=== PATIENT | female | born 1960 | race Caucasian/White ===

== ENCOUNTER 2019-08-24 11:24 | Inpatient (IN) | payer OTHER, SELFPAY ==
[2019-08-15 08:49] VITALS: BMI 29.8
[2019-08-24] VITALS (19 sets, daily range): BP systolic 81–127; BP diastolic 43–75; PULSE 64–85; RESP 10–20; TEMP 35.9–36.6; O2SAT 90–100; BMI 29.8
--- NOTE | 2019-08-24 | DI.RAD.S_ITS ---
PROCEDURE: XR LUMBAR SPINE 2-3V INDICATIONS: L5-S1 TLIF TECHNIQUE: 2 fluoroscopic images views of the lumbar spine were acquired. COMPARISON: CT, CT LUMBAR SPINE WO CON, 10/11/2015, 21:19. FINDINGS: L5-S1 fixation and intervertebral body spacer. Minimal anterolisthesis. L5 pars defect seen on remote CT. IMPRESSION: L5-S1 fixation and intervertebral body spacer. Dictated by: George Alas M.D. on 08/24/2019 at 16:56 Approved by: George Alas M.D. on 08/24/2019 at 16:58
[2019-08-24] MEDS: LACTATED RINGERS 1,000 ML 42 ML IV ×2 (12:10→15:47)
--- NOTE | 2019-08-24 13:39 | PM.PREOP ---
Pre-operative Note Interval Note History & Physical reviewed/Exam performed by Physician: Yes Changes to H&P: No
[2019-08-24] MEDS: CEFAZOLIN 2 GM/100 ML FROZ.PIGGY IV ×2 (14:30→22:04)
--- NOTE | 2019-08-24 14:54 | SUR.OPER ---
Prone on spine table, head in foam head support, padded chest and pelvic supports, gel pad at knees, lower legs supported by pillows; nipples, genitalia and toes free of pressure, arms secured on foam padded arm boards at <90 degrees abduction. Tape over blanket at thigh secured to table.
[2019-08-24] MEDS: BUPIVACAINE 0.25% W/ EPI 30 ML VIAL INJ (15:04)
[2019-08-24] MEDS: BUPIVACAINE LIPOSOME 266 MG/20 ML VIAL INJ (15:04)
[2019-08-24] MEDS: ACETAMINOPHEN IV 1,000 MG/100 ML VIAL 400 MG IV (15:05)
--- NOTE | 2019-08-24 16:44 | PM.OP.1 ---
Operative Date/Time/Diagnoses Date of procedure: 08/24/19 Time of procedure: 14:44 Pre-op diagnosis: 1. L5-S1 spondylolisthesis 2. L4-5, L5-S1 spinal stenosis 3. L4-5, L5-S1 spondylosis with radiculopathy Post-op diagnosis: same Procedure & Clinicians Procedure: 1. L5-S1 Postero-lateral and posterior interbody fusion 2. L5-S1 interbody cage placement. 3. L5-S1 decompressive laminectomy with bilateral facetecomies 4. L5-S1 Posterior non-segmental instrumentation 5. L4-5 hemilaminectomy 6. [place] of bone marrow from iliac crest 7. Utilization of microsurgical technique and operating microscope Same procedure as scheduled: Yes Indications: Patient has been having chronic back pain and worsening lumbar radiculopathy. Patient failed multiple conservative management with worsening pain weakness and numbness in her lower extremity. Patient has been having difficulty performing activity of daily living. After discussing risks benefits of treatment options, patient elected proceed with surgery. Surgeon: Isaias Corbin Field Representative/Health Education: Alena Mckoy Click Yes if Unassisted: No Anesthesia Type: General Operative Notes Closure Type: primary Specimen(s): none sent Prosthetic devices, grafts, tissues, transplants, or devices: Globus revolve screws, Rise cage Estimated Blood Loss (mL): 50 Blood products transfused: none Procedure in detail: Patient was seen in the preoperative area. Risks and benefits of the surgery was discussed with the patient. Informed consent was obtained from the patient and placed in the chart. Surgical site was marked. Patient was taken to the operative room. General anesthesia was administered. Prophylactic antibiotic was given to the patient less than 30 min before the incision was made. Patient was placed into a prone position on the Red table. Patient's back was then prepped and draped in the sterile fashion. Time-out was performed at this time. Using AP and lateral C-arm imaging the interval between L4-5 L5-S1 was identified and marked on patient's back. A 2 inch incision 2 in from midline was made on the left side first. The fascia was incised in line with skin incision. Globus MARS retractors was placed inside the incision and docked onto the L5 lamina. Using microsurgical technique and operating microscope, a L5 laminectomy and L5-S1 facetectomy was performed using a [place]ison rongeur. Patient was found have severe central and neural foramen stenosis which was fully decompressed after the laminectomy and facetectomy was completed. The disc space at L5-S1 was identified. And a total diskectomy was performed at L5-S1 level. The endplates were decorticated using a rasp and shaver. The total diskectomy and decortication was performed at L5-S1 level in order to to accomplish a L5-S1 fusion. The local bone from the laminectomy and facetectomy was saved for local bone grafting. After the total diskectomy and decortication was completed, Bio4 bone graft material was combined with local bone that was harvested earlier. At this time, a separate skin is incision was made over the iliac crest. A Jamshidi needle was inserted into the iliac crest through a separate skin incision. 5 cc of bone marrow aspiration was obtained through the separate skin incision using a Jamshidi needle from the iliac crest. The bone marrow aspiration was combined with local bone and the Bio4 bone grafting material. The bone grafting material was placed into the L5-S1 interbody space along with a expandable cage. The cage was expanded to its maximum height using the torque limiting screwdriver. At this time the MARS retractor was redirected over the L4 lamina. Using microsurgical technique and operating microscope, a L4-5 heminectomy was performed using the [place] rongeur. The ligamentum flavum was also resected at the side of the hemilaminectomy for further decompression of the epidural space. At this time a mirror image incision was made on the right side. The fascia was incised in line with the skin incision. Globus MARS retractor was inserted and docked onto the L5-S1 posterolateral gutter. Using the power drill, posterior-lateral decortication was performed at L5-S1 level until bleeding cortical bone was identified. The remaining bone grafting material was placed into the L5-S1 posterior lateral gutter he order to accomplish posterolateral fusion at the L5-S1 level. Using the double C-arm technique, pedicle screws were placed into the L5 and S1 pedicles bilaterally. This was done by placing the Jamshidi needle into the pedicles, then placing the guidewires over the Jamshidi needle, and finally placing the cannulated screws over the guidewires bilaterally. After the pedicle screws were placed, 2 titanium rods was locked into the heads of the pedicle screws using locking caps and torque limiting screwdriver. Threaded head girls golf coach was used to reduce patient's spondylolisthesis which was fully reduced and stabilized. After all the hardware was placed, and confirmed with AP and lateral C-arm imaging, the wound was then irrigated with sterile normal saline and packed with Ray-Javi gauze for 3 min to accomplish hemostasis. After the gauze was removed the deep fascia was closed with #1 Vicryl suture. The subcutaneous layer was closed with 2-0 Vicryl. The skin was closed with skin delio. Patient tolerated the procedure well. There were no complications. Complications: none Post-operative Condition: stable Disposition: PACU Plan for aftercare: Admit to inpatient hospital
[2019-08-24] MEDS: HYDROMORPHONE 2 MG INJ IV ×8 (17:12→18:05)
[2019-08-24] MEDS: LORazepam 2 MG/ML INJ 0.5 MG IV (17:31)
[2019-08-24] MEDS: CELECOXIB 200 MG CAPSULE PO (17:49)
[2019-08-24] MEDS: OXYCODONE IR 5 MG TABLET PO (17:56)
--- NOTE | 2019-08-24 18:13 | SUR.PHASEI ---
Patient arrived in PACU with oral airway in. When patient woke up she c/o 10/10 pain requiring multiple IV pain med boluses. Gave po pain medication and Lyrica also. Radha CDI. Patient REYNOLD's x 4.
[2019-08-24] MEDS: SODIUM CHLORIDE 0.9% 1,000 ML 100 ML IV (19:56)
[2019-08-24] MEDS: OXYCODONE IR 5 MG TABLET 10 MG PO ×2 (19:57→23:06)
[2019-08-24] MEDS: SENNOSIDES 8.6 MG TABLET 17.2 MG PO (19:58)
[2019-08-24] MEDS: DOCUSATE 100 MG CAPSULE PO (19:58)
--- NOTE | 2019-08-24 20:54 | PC.NURSE ---
Arrival to Floor Patient arrives from PACU alert and oriented but restful. Surgical dressing intact, with some drainage noted to dressing body as well as steri-strips outside of dressing. Mild bruising noted to left thigh. Patient on 2L O2 per titration orders. Family at bedside, care is ongoing.
[2019-08-24] MEDS: HYDROMORPHONE 0.5 MG INJ IV ×2 (21:39→23:44)
[2019-08-25 00:10] VITALS: BP 114/58; PULSE 75; RESP 18; TEMP 36.8; O2SAT 97
[2019-08-25] MEDS: OXYCODONE IR 5 MG TABLET 10 MG PO (02:00)
[2019-08-25 03:30] VITALS: BP 117/66; PULSE 60; RESP 17; TEMP 36.7; O2SAT 99
[2019-08-25] MEDS: HYDROMORPHONE 0.5 MG INJ IV (04:27)
--- NOTE | 2019-08-25 04:28 | PC.NURSE ---
Patient's pain is not being completely managed on PO pain meds alone, having to use break through IV meds despite regular PO dosing. Will pass on to day shift.
[2019-08-25] MEDS: CEFAZOLIN 2 GM/100 ML FROZ.PIGGY IV (06:08)
--- NOTE | 2019-08-25 07:34 | PM.PN.1 ---
Subjective Subjective Date Patient Seen: 08/25/19 Time Patient Seen: 07:35 Interval history: Patient is POD#1 s/p L4-5 hemilaminectomy, L5-S1 TLIF with Dr. Corbin. Pain was moderate to severe overnight requiring Oxycodone 10mg as well as regular IV Dilaudid. Pain is in the hips and right anterior thigh. She has not mobilized with PT as of yet. She denies any chest pain, shortness of breath, nausea or vomiting. Exam Vital Signs (past 8 hours): - 08/25/19 00:10 08/25/19 03:30 Temperature 98.2 F 98.0 F Pulse Rate 75 60 Respiratory Rate 18 17 Blood Pressure 114/58 L 117/66 Pulse Oximetry 97 99 Oxygen Delivery Method Room Air Oxygen Flow Rate 2 Narrative Exam Narrative: 59 year old female resting in bed in some discomfort. Alert and oriented. Dressing is CDI. 5/5 BLE. Calves soft, compressible. Palpable pedal pulse. Objective Labs Result Diagrams: 08/25/19 08:41 Assessment & Plan Assessment & Plan narrative: Patient progressing as expected postoperatively. Will add Dilaudid 2mg for moderate and 4mg for severe pain, encouraged patient to start with 2mg. Will consider Decadron if worsening of anterior thigh pain. Mobilize with PT today. Likely discharge to home in the next 1-2 days.
[2019-08-25 07:44] VITALS: O2SAT 99
[2019-08-25 08:00] VITALS: BP 103/63; PULSE 65; RESP 16; TEMP 36.4; O2SAT 98
[2019-08-25] MEDS: HYDROMORPHONE 4 MG TABLET PO ×5 (08:05→21:49)
[2019-08-25] MEDS: DOCUSATE 100 MG CAPSULE PO ×2 (08:05→21:58)
[2019-08-25] MEDS: ACETAMINOPHEN 325 MG TABLET 650 MG PO ×2 (08:05→14:53)
[2019-08-25] MEDS: INFLUENZA VACCINE 0.5 ML SYRINGE IM (08:06)
[2019-08-25 08:45] LABS: Hematocrit 35.3 % (36-46)
--- NOTE | 2019-08-25 09:33 | PC.NURSE ---
Addendum entered by Priyanka Hough R.N. 08/25/19 13:36: Patient is working with physical therapy now. Given 4mg of po dilaudid and vistaril and patients pain down to 2/10, nausea did resolve. Will medicate her when dilaudid is do again. Original Note: Assess- Patient is A&Ox3, she states that her pain level is 6/10. Given 4mg of po dilaudid and somewhat helpful. Patient is walking in the halls at this time and will most likely sit up in the chair for a while. Back dressing bulky with a small amount of drainage x2. CMS wnl and pt denies numbness or tingling to bilateral lower extremities.
--- NOTE | 2019-08-25 10:18 | OT.IP.EVAL ---
Current Diagnoses Spondylolisthesis, lumbar region (08/24/19) Other spondylosis with radiculopathy, lumbosacral region (08/24/19) Spinal stenosis, lumbar region with neurogenic claudication (08/24/19) Surgery Performed Operation Date: 08/24/19 13:45 Actual Procedures p L4-5 hemilaminectomy, L5-S1 TLIf w/ posterior instrumentation - Isaias Corbin MD Past Medical History (Last Updated 08/15/19 @ 09:14 by Jana Givens RN) Arthritis (Acute) Back pain (Acute) Breast cancer, left (Acute ~2011) Elevated cholesterol (Acute) HTN (hypertension) (Acute) Sciatica (Acute) Surgical History (Last Updated 08/15/19 @ 09:14 by Jana Givens RN) History of lumpectomy of left breast (Acute ~2011) Hx of cholecystectomy (Acute) Hx of LASIK (Acute) Hx of partial mastectomy (Acute ~2011) Hx of tubal ligation (Acute) Occupational Therapy Inpatient Evaluation/Re-Eval M1 PT/OT-IP Prior Functional Status Start: 08/25/19 08:30 Freq: NEEDED Status: Active Protocol: Document 08/25/19 10:27 AW (Rec: 08/25/19 10:54 AW [id number]) Medical Review Prior Functional Status Medical History Reviewed Yes Diet/Fluid Consistency Regular Communication WNL Mobility and Gait Pt has been using a SPC ~20% of the time for mobility. She is otherwise independent but limited to parking lot distances. Activities of Daily Living and IADL's Pt's occasionally helps her don pants, shoes, and socks. She reports independence with showering and toileting. 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 She reports one non-injurious fall on the playground (uneven surface) in the past year. Social History Household Members spouse,family Living Arrangements House Number of Floors (Floors) One Floor Number of Stairs To Enter/Railing? Ramped entry Home Environment Standard Height Toilet,Tub/ Shower,Ramp Home Equipment Four Wheel Walker,Straight Cane,Manual Wheelchair Employment Status Self-Employed Additional Social History Comment Pt lives with her spouse and her mother. Her mom does not have any caregiving needs. Her spouse will be off work this Thursday to assist her at home and over the weekend. Pt's sister is arriving next week to stay and help through the month of August. M2 OT-IP Current Condition Start: 08/25/19 16:24 Freq: Status: Active Protocol: Document 08/25/19 10:18 PJM (Rec: 08/25/19 16:43 PJ [id number]) Occupational Therapy Current Condition Current Condition Evaluation Date 08/25/19 Treatment Diagnosis decreased self care, mobility s/p L5-S1 lami w/PLIF Post Operative Precautions Lumbar Precautions Log Roll,No Twisting,Limit Bending,Lifting Restriction of 10 lbs,Gait Belt above Incisional Area M3 OT- IP Subjective and Pain Start: 08/25/19 16:24 Freq: Status: Active Protocol: Document 08/25/19 10:18 PJM (Rec: 08/25/19 16:43 PJ [id number]) OT- Subjective Occupational Therapy Visit Type Type Initial Evaluation Visit Start Time 09:43 Visit Stop Time 10:18 Total Visit Minutes 35 Occupational Therapy Visit Comments Patient Comments My pain is not too good right now and I am feeling a little nauseous Patient/Caregiver 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 and 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 OT Pain Assessment Pain When Pain Assessed After Treatment Pain Present Pain Present Pain Reported Location Back Intensity 6 Scale Used Numeric (1 - 10) Description Aching,Acute Pain Behaviors Facial Grimacing Management Techniques Distraction,Timing of Activity with Medications M4 OT- IP ADL's Start: 08/25/19 16:24 Freq: Status: Active Protocol: Document 08/25/19 10:18 PJM (Rec: 08/25/19 16:43 PJ [id number]) OT EDF-Jrcx-Craclmr General Evaluation Self-Feeding Ability Independent OT ADL-Grooming General Evaluation Grooming Ability Standby Assistance Comments OT Grooming Comments face washing in bed after set up, pt declines out of bed this session as just got back to bed after P.T. OT ADL-Oral Care Comments Oral Care Comments did not occur OT ADL-Dressing General Eval Lower Body Dressing Ability Maximum Assistance Assistive Devices Dressing Assistive Devices Floor Representative Comments OT Dressing Comments Began education re: adapted techniques for lower body dressing within lumbar precautions. Provided oracle specialist. Pt declines sock aid and long shoe horn as she rarely wears socks and has slip on shoes. OT ADL-Toileting General Evaluation Areas Needing Assistance Perform Perineal Hygiene Devices Toileting Assistive Devices Toilet Paper Aid Comments OT Toileting Comments Pt concerned about ability to complete telma care without twisting. Provided education re: toilet paper aids and on line resources for obtaining them. Pt plans to order one on line today. OT ADL-Bathing Bathing Type Bathing Type Shower Devices Bathing Equipment Long Handled Sponge or [place], Shower Chair without Arms Comments OT Bathing Comments to be assessed as activity tolerance improves, long bath sponge provided; recommend shower seat M5 OT- IP IADL's Start: 08/25/19 16:24 Freq: Status: Active Protocol: Document 08/25/19 10:18 PJM (Rec: 08/25/19 16:43 PJM [id number]) OT-Instrumental Activities of Daily Living Deficits IADL Deficits Identified Deficits Home Safety Awareness Awareness of Need for Assistance at Home Good Awareness Ability to Problem Solve Emergency Able to Problem Solve Situations Home Safety Comments Pt will have assist with all IADLS from sister and . Medication Management Medication Management No Deficits Identified Money Management Money Management No Deficits Identified Meal Preparation Meal Preparation Caregiver Provides Assist Establishment Guide Establishment Guide Caregiver Provides Assist Driving Driving Concerns Identified Regarding Safety M6 OT- IP Functional Cognition Start: 08/25/19 16:24 Freq: Status: Active Protocol: Document 08/25/19 10:18 PJM (Rec: 08/25/19 16:43 PJM [id number]) Cognitive Factors Limiting Selfcare Function Cognitive Ability Level of Alertness Alert Patient Orientation Name,Age,Birthday,Month,Date, Year,Day of Week,Place, Situation Attention Span Ability Capable of Focused Attention, Capable of Sustained Attention Ability to Follow Commands Able to Follow One Step Commands Memory Description No Deficits Noted Safety Awareness No Deficits Noted Problem Solving Ability No deficits Noted Cognitive Comments Cognitive Assessment Comments Pt verbalizes understanding of all education. OT- Vision and Hearing OT- Hearing Assessment OT- Hearing Assessment WFL OT- Vision Assessment Visual Acuity WFL M7 OT- IP Mobility and Balance Start: 08/25/19 16:24 Freq: Status: Active Protocol: Document 08/25/19 10:18 PJM (Rec: 08/25/19 16:43 PJM [id number]) OT-Transfer Assessment Comments Mobility Comments see P.T. notes, pt declined OOB this session OT- Gait Assessment Comments Gait Ability Comments see P.T. notes OT- Balance Assessment Comments Other Balance Tests/Deviations/Treatment see P.T. notes : M8 OT- IP Objective Assessments Start: 08/25/19 16:24 Freq: Status: Active Protocol: Document 08/25/19 10:18 PJM (Rec: 08/25/19 16:43 PJM [id number]) OT Gross Range of Motion Upper Extremity Range of Motion Assessment Within Functional Limits OT Strength Upper Extremity Strength Assessment Within Functional Limits OT- Coordination Assessment Upper Extremity Finger to Nose Test Right UE Impaired OT-Muscle Tone Assessment Muscle Tone WNL Yes OT Sensation Assessment Comments Summary Comments BUE WNL per pt Edema Edema Absent M9 OT- IP Assessment and Plan Start: 08/25/19 16:24 Freq: Status: Active Protocol: Document 08/25/19 10:18 PJM (Rec: 08/25/19 16:43 PJM [id number]) OT Summary Assessment and Plan Potential Rehabilitation Potential Good Analytic Complexity at Evaluation Low Summary OT Impairments Pain,Functional Mobility, Grooming,Dressing,Toileting, Bathing,Toilet Transfers, Shower Transfers,Activity Tolerance Assessment Summary Low complexity OT assessment begun with pt declining OOB this session due to pain, nausea and fatigue. Pt is a 59 yr old female s/p elective L5 -S1 lami with PLIF. Began education re: lumbar precautions and adapted ADL techniques as described above. Pt currently has performance deficits due to post op pain in all functional mobility/ transfers, standing grooming, lower body dressing, bathing, toileting. Anticipate pt will continue to improve here and be able to d/c home with 24 hr family assist. Pt will benefit from one more OT visit here to address the goals below. Goals Grooming Goal Standby Assistance Dressing Goal Standby Assistance,Floor Representative Toileting Goal Standby Assistance,Toilet Paper Aid Bathing Goal Standby Assistance,Hand Held Shower Sprayer,Long Handled Sponge or [place] Toilet Transfer Goal Standby Assistance Shower Transfer Goal Contact Guard Assistance,Walk- in Shower,Shower Chair Patient/Caregiver Education Goal Demonstrate Post-Op Precautions,Demonstrate Energy Conservation and Pacing, Caregiver Independent Assisting Patient OT-Other Goals Grooming to be done standing at sink with good body mechanics and safety awareness Days to Meet Goals 1 Frequency of Treatment Frequency Of Treatment Once a Day Treatment Plan OT Treatment Plan ADL Training,Functional Mobility,Patient/Family Education,Discharge Planning Discharge Recommendations OT Discharge Recommendations Home with 19/01 Assist Home Equipment Needs shower seat Transportation Needs at Discharge Private Vehicle
[2019-08-25] MEDS: hydrOXYzine pamoate 25 MG CAPSULE PO (10:38)
--- NOTE | 2019-08-25 10:54 | PT.IIE ---
Current Diagnoses Spondylolisthesis, lumbar region (08/24/19) Other spondylosis with radiculopathy, lumbosacral region (08/24/19) Spinal stenosis, lumbar region with neurogenic claudication (08/24/19) Surgery Performed Operation Date: 08/24/19 13:45 Actual Procedures p L4-5 hemilaminectomy, L5-S1 TLIf w/ posterior instrumentation - Isaias Corbin MD Surgical History (Last Updated 08/15/19 @ 09:14 by Jana Givens RN) History of lumpectomy of left breast (Acute ~2011) Hx of cholecystectomy (Acute) Hx of LASIK (Acute) Hx of partial mastectomy (Acute ~2011) Hx of tubal ligation (Acute) Medical History (Last Updated 08/15/19 @ 09:14 by Jana Givens RN) Arthritis (Acute) Back pain (Acute) Breast cancer, left (Acute ~2011) Elevated cholesterol (Acute) HTN (hypertension) (Acute) Sciatica (Acute) Physical Therapy Inpatient Evaluation/Re-Eval M1 PT/OT-IP Prior Functional Status Start: 08/25/19 08:30 Freq: NEEDED Status: Active Protocol: Document 08/25/19 10:27 AW (Rec: 08/25/19 10:54 AW [id number]) Medical Review Prior Functional Status Medical History Reviewed Yes Diet/Fluid Consistency Regular Communication WNL Mobility and Gait Pt has been using a SPC ~20% of the time for mobility. She is otherwise independent but limited to parking lot distances. Activities of Daily Living and IADL's Pt's occasionally helps her don pants, shoes, and socks. She reports independence with showering and toileting. 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 She reports one non-injurious fall on the playground (uneven surface) in the past year. Social History Household Members spouse,family Living Arrangements House Number of Floors (Floors) One Floor Number of Stairs To Enter/Railing? Ramped entry Home Environment Standard Height Toilet,Tub/ Shower,Ramp Home Equipment Four Wheel Walker,Straight Cane,Manual Wheelchair Employment Status Self-Employed Additional Social History Comment Pt lives with her spouse and her mother. Her mom does not have any caregiving needs. Her spouse will be off work this Thursday to assist her at home and over the weekend. Pt's sister is arriving next week to stay and help through the month of August. M2 PT-IP Current Condition Start: 08/25/19 08:30 Freq: NEEDED Status: Active Protocol: Document 08/25/19 10:27 AW (Rec: 08/25/19 10:54 AW [id number]) Physical Therapy Current Condition Current Condition Evaluation Date 08/25/19 Treatment Diagnosis L4-5 marii lami, L5-S1 TLIF, impaired mobility Onset Date 08/24/19 Precautions Lumbar Precautions Log Roll,No Twisting,Limit Bending,Lifting Restriction of 10 lbs,Gait Belt above Incisional Area Weight Bearing Status Weight Bearing Status Full Weight Bearing M3 PT-IP Subjective Start: 08/25/19 08:30 Freq: NEEDED Status: Active Protocol: Document 08/25/19 10:27 AW (Rec: 08/25/19 10:54 AW [id number]) Subjective Physical Therapy Visit Type Type Initial Evaluation Visit Start Time 09:15 Visit Stop Time 09:50 Total Visit Minutes 35 Number of VIDEO POKER FLOORMAN Visits 0 Physical Therapy Visit Comments Patient Comments Pt interested in using the toilet Patient Goals Pt hopes to discharge to home with family assist Therapy Pain Assessment Pain When Pain Assessed During Mobility Pain Present Pain Present Pain Reported Location right anterior thigh Intensity 6 Scale Used Numeric (1 - 10) Pain Management Techniques Distraction,Timing of Activity with Medications Back Intensity 6 Scale Used 6/10 at rest; unchanged with mobility Pain Management Techniques Distraction,Timing of Activity with Medications M4 PT-IP Mobility and Gait Start: 08/25/19 08:30 Freq: NEEDED Status: Active Protocol: Document 08/25/19 10:27 AW (Rec: 08/25/19 10:54 AW [id number]) PT-Bed Mobility Assessment Rolling Type of Rolling Log Rolling Level of Assist Minimal Assistance Sit to Supine Sit to Supine Minimal Assistance,1 Person Assistance Scooting Scooting to Edge of Bed Minimal Assistance PT-Transfer Assessment Sit to and From Stand Sit to and from Stand Contact Guard Assistance,1 Person Assistance,Use of Upper Extremities Equipment Transfer Assistive Device Gait Belt,4 Wheeled Walker Orthotic/Prosthetic Devices or Brace: No Transfers Transfer Destination Bed,Chair,Toilet Transfer Technique pt ambulated with 4WW Transfer Ability Level of Assist Contact Guard Assistance Comments Mobility Comments Pt encountered sitting EOB upon PT arrival, working with student nurse. Pt's own 4WW was in the room. PT unable to locate pediatric size FWW, so proceeded with pt's 4WW although she was unfamiliar with the device. After brief education on safety with 4WW, pt completed sit to stand using 4WW CGA. She ambulated to the toilet with 4WW CGA and cues to keep the 4WW a safe distance from her trunk, especially in turns. She transferred to and from the toilet CGA then transferred to the chair CGA with student nurse assisting with briefs. Pt then ambulated in the halls before requesting return to bed. Pt required min A x 1 for sit to supine and log roll. She was positioned in the bed with bed alarm armed for safety, call light and table within reach. OT arrived as PT was exiting. Gait Assessment Gait Gait Assistance Required: Contact Guard Assist Distance (Feet) 60 Able to Maintain Weight Bearing Status Yes During Gait Assistive Devices Assistive Device Gait Belt,4 Wheeled Walker Orthotic/Prosthetic Devices or Brace: No Gait Deviations General Gait Pattern Antalgic,Decreased Stride Length,Decreased Feet Clearance,Step-to Gait Factors Limiting Gait Function Factors Limiting Gait Function Decreased Activity Tolerance, Decreased Strength,Pain,Poor Safety Awareness Comments Gait Comments Pt required education on use of 4WW for setting the brakes appropriately and for keeping the walker closer to her body especially during turns. She expressed interest in trying a FWW at PM session. She moved slowly but with good safety awareness with 4WW CGA in the halls without marked increase in pain. Stair Climbing Assessment Comments Stair Climbing Comments Not assessed. No stairs at home. PT-Balance Assessment Sitting Balance and Reactions Static Sitting Balance Ability Good Dynamic Sitting Balance Ability Good Standing Balance and Reactions Static Standing Balance Ability Good Dynamic Standing Balance Ability Good Device Used 4WW M5 PT-IP Objective Assessments Start: 08/25/19 08:30 Freq: NEEDED Status: Active Protocol: Document 08/25/19 10:27 AW (Rec: 08/25/19 10:54 AW [id number]) Orientation Orientation/Cognition Level of Alertness Alert Orientation Name,Month,Place,Situation Language Function Ability No Deficits Noted Safety Awareness Understands Safety Issues Memory Description No Deficits Noted Gross Range of Motion Lower Extremity ROM Assessment Within Functional Limits Strength Lower Extremity Strength Assessment Bilaterally Impaired Comments Strength Comments BLE grossly 4/5 Coordination Assessment Gross Coordination Gross Coordination WNL Sensation Assessment Sensation Gross Sensation WNL M6 PT-IP Treatment Start: 08/25/19 08:30 Freq: NEEDED Status: Active Protocol: Document 08/25/19 10:27 AW (Rec: 08/25/19 10:54 AW [id number]) Physical Therapy Treatment Education Education Provided Precautions,Weight Bearing Status,Post-Op Packet,Safety Other Treatments Other Treatment Performed Provided education on role of PT, plan of care, spinal precautions, and selection of appropriate assistive device. Pt was able to recall all spinal precautions. M7 PT-IP Assessment and Plan Start: 08/25/19 08:30 Freq: NEEDED Status: Active Protocol: Document 08/25/19 10:27 AW (Rec: 08/25/19 10:54 AW [id number]) PT Summary Assessment and Plan Potential Rehabilitation Potential Excellent Status of Condition at Evaluation Stable Summary Impairments Pain,ROM,Strength,Bed Mobility ,Transfers,Gait,Activity Tolerance Assessment Summary Preeti is a 59 yo woman seen for PT evaluation on POD1 following L4-5 marii lami and L5-S1 TLIF. At baseline, she was modified independent with all mobility, using a SPC ~20% of the time. She required occasional assist for lower body dressing. On evaluation, she required CGA to min assist for all mobility but is expected to progress and meet the functional goals of this plan of care. She used her own 4WW for mobility today but would prefer to try a FWW at PM session. She is currently limited in her mobility primarily by pain but will be safe to discharge to her home environment with family assist when medically cleared. Goals Bed Mobility Goal Standby Assistance Transfer Goal Standby Assistance,Front Wheeled Walker,Four Wheeled Walker Gait Goal Standby Assistance,Front Wheel Walker,Four Wheel Walker Gait Distance 250 Days to Meet Goals 2 Frequency of Treatment Frequency Of Treatment Twice a Day Treatment Plan Physical Therapy Treatment Plan Bed Mobility Training,Transfer Training,Gait Training, Therapeutic Exercise,Balance Retraining,Post Op Education, Discharge Planning,Hot or Cold Pack,Neuromuscular Re-ed, Coordination Retraining,Manual Therapy Other Recommendations and Next Treatment trial pediatric FWW (pt 4'9); Focus Recommendations To Nursing Amount of Assist Needed Standby Assistance,1 Person Assist Discharge Recommendations PT Discharge Recommendations Home with Assistance Equipment Needed for Home Before may need FWW; tub transfer Discharge bench Transportation Needs at Discharge Private Vehicle
[2019-08-25 12:00] VITALS: BP 119/72; PULSE 69; RESP 16; TEMP 36.6; O2SAT 98
--- NOTE | 2019-08-25 14:35 | PT.IPTN ---
Current Diagnoses Spondylolisthesis, lumbar region (08/24/19) Other spondylosis with radiculopathy, lumbosacral region (08/24/19) Spinal stenosis, lumbar region with neurogenic claudication (08/24/19) Surgery Performed Operation Date: 08/24/19 13:45 Actual Procedures p L4-5 hemilaminectomy, L5-S1 TLIf w/ posterior instrumentation - Isaias Corbin MD Physical Therapy Treatment Note M2 PT-IP Current Condition Start: 08/25/19 08:30 Freq: NEEDED Status: Active Protocol: Document 08/25/19 10:27 AW (Rec: 08/25/19 10:54 AW [id number]) Physical Therapy Current Condition Current Condition Evaluation Date 08/25/19 Treatment Diagnosis L4-5 marii lami, L5-S1 TLIF, impaired mobility Onset Date 08/24/19 Precautions Lumbar Precautions Log Roll,No Twisting,Limit Bending,Lifting Restriction of 10 lbs,Gait Belt above Incisional Area Weight Bearing Status Weight Bearing Status Full Weight Bearing M3 PT-IP Subjective Start: 08/25/19 08:30 Freq: NEEDED Status: Active Protocol: Document 08/25/19 14:20 AW (Rec: 08/25/19 14:35 AW [id number]) Subjective Physical Therapy Visit Type Type Treatment Note Visit Start Time 13:27 Visit Stop Time 13:47 Total Visit Minutes 20 Physical Therapy Visit Comments Patient Comments Pt has been nauseous and trying to rest but is willing to participate with PT Therapy Pain Assessment Pain When Pain Assessed During Mobility Pain Present Pain Present Pain Reported Location right anterior thigh Intensity 5 Scale Used 5/10 at rest; unchanged with mobility Pain Management Techniques Distraction,Timing of Activity with Medications M4 PT-IP Mobility and Gait Start: 08/25/19 08:30 Freq: NEEDED Status: Active Protocol: Document 08/25/19 14:20 AW (Rec: 08/25/19 14:35 AW [id number]) PT-Bed Mobility Assessment Rolling Type of Rolling Log Rolling Level of Assist Contact Guard Assistance Sit to Supine Sit to Supine Minimal Assistance,1 Person Assistance Scooting Scooting to Edge of Bed Standby Assistance PT-Transfer Assessment Sit to and From Stand Sit to and from Stand Standby Assistance,1 Person Assistance,Use of Upper Extremities Equipment Transfer Assistive Device Gait Belt,4 Wheeled Walker Orthotic/Prosthetic Devices or Brace: No Transfers Transfer Destination Chair Transfer Technique pt ambulated with 4WW Transfer Ability Level of Assist Standby Assistance Comments Mobility Comments Pt resting in bed upon PT arrival. She completed log roll to her right side CGA and cues for sequencing, sit to stand using 4WW SBA. Pt was wincing with pain but reported no increase from pain level at rest. After gait training in the mercedes, pt returned to the room and transferred to the chair SBA without need for cues to lock the 4WW. She was able to scoot her hips back in the chair. PT positioned her with pillows, call light and table within reach, nursing notified that pt was reclined in the chair. Gait Assessment Gait Gait Assistance Required: Standby Assistance Distance (Feet) 90 Able to Maintain Weight Bearing Status Yes During Gait Assistive Devices Assistive Device Gait Belt,4 Wheeled Walker Orthotic/Prosthetic Devices or Brace: No Gait Deviations General Gait Pattern Antalgic,Decreased Stride Length,Decreased Feet Clearance,Step-to Gait Factors Limiting Gait Function Factors Limiting Gait Function Decreased Activity Tolerance, Decreased Strength,Pain,Poor Safety Awareness Comments Gait Comments Unable to locate a pediatric- sized walker, PT proceeded with pt's own 4WW. Pt demonstrated good safety with the 4WW, setting the brakes appropriately without need for cues. PT instructed patient in using the seat of the walker by pushing it against a wall first, setting the brakes, and then turning around with hands on the handles. Pt was able to complete sit<>stand on the 4WW safely without additional cues. She has good posture and safety awareness with the FWW but still may be interested in procuring a FWW at discharge for ease of use. Stair Climbing Assessment Comments Stair Climbing Comments Not assessed. No stairs at home. M5 PT-IP Objective Assessments Start: 08/25/19 08:30 Freq: NEEDED Status: Active Protocol: Document 08/25/19 10:27 AW (Rec: 08/25/19 10:54 AW [id number]) Orientation Orientation/Cognition Level of Alertness Alert Orientation Name,Month,Place,Situation Language Function Ability No Deficits Noted Safety Awareness Understands Safety Issues Memory Description No Deficits Noted Gross Range of Motion Lower Extremity ROM Assessment Within Functional Limits Strength Lower Extremity Strength Assessment Bilaterally Impaired Comments Strength Comments BLE grossly 4/5 Coordination Assessment Gross Coordination Gross Coordination WNL Sensation Assessment Sensation Gross Sensation WNL M6 PT-IP Treatment Start: 08/25/19 08:30 Freq: NEEDED Status: Active Protocol: Document 08/25/19 14:20 AW (Rec: 08/25/19 14:35 AW [id number]) Physical Therapy Treatment Education Education Provided Precautions,Safety Other Treatments Other Treatment Performed Continued to reinforce precautions which pt was able to recall without prompts. M7 PT-IP Assessment and Plan Start: 08/25/19 08:30 Freq: NEEDED Status: Active Protocol: Document 08/25/19 14:20 AW (Rec: 08/25/19 14:35 AW [id number]) PT Summary Assessment and Plan Summary Impairments Pain,ROM,Strength,Bed Mobility ,Transfers,Gait,Activity Tolerance Progress Towards Goals Progressing Toward Goals Goals Bed Mobility Goal Standby Assistance Transfer Goal Standby Assistance,Front Wheeled Walker,Four Wheeled Walker Gait Goal Standby Assistance,Front Wheel Walker,Four Wheel Walker Gait Distance 250 Days to Meet Goals 2 Frequency of Treatment Frequency Of Treatment Twice a Day Treatment Plan Physical Therapy Treatment Plan Bed Mobility Training,Transfer Training,Gait Training, Therapeutic Exercise,Balance Retraining,Post Op Education, Discharge Planning,Hot or Cold Pack,Neuromuscular Re-ed, Coordination Retraining,Manual Therapy Other Recommendations and Next Treatment trial pediatric FWW (pt 4'9); Focus progress gait distance Recommendations To Nursing Amount of Assist Needed Standby Assistance Discharge Recommendations PT Discharge Recommendations Home with Assistance Equipment Needed for Home Before may need FWW; tub transfer Discharge bench Transportation Needs at Discharge Private Vehicle
[2019-08-25 15:51] VITALS: BP 108/60; PULSE 74; RESP 16; TEMP 36.3; O2SAT 96
--- NOTE | 2019-08-25 16:18 | PC.NURSE ---
Addendum entered by Dione Serra 08/25/19 18:58: Patient medicated for 4/10 lower back pain at 1836 to good effect. Patient resting comfortably. Original Note: Assumed care of patient. Safe hand off received from STAR Mathew. Patient is a/o with daughter at bedside. Patient up to bathroom with four-wheeled walker, 1 PA. Patient back in bed, with tolerable pain 3/10. IV SL and asymptomatic. Dressing to lower back, CDI. Foot SCDs reapplied. Bed in lowest position and call light in reach. Patient agrees to call staff before getting OOB. Will continue to monitor.
[2019-08-25] MEDS: SENNOSIDES 8.6 MG TABLET 17.2 MG PO (21:58)
[2019-08-26] VITALS: BP 108/64; PULSE 64; RESP 18; TEMP 36.6; O2SAT 96
[2019-08-26] MEDS: HYDROMORPHONE 2 MG TABLET PO ×2 (00:35→03:42)
[2019-08-26] MEDS: ONDANSETRON 4 MG/2 ML INJ IV (00:35)
--- NOTE | 2019-08-26 03:44 | PC.NURSE ---
Addendum entered by Kylah Newton R.N. 08/26/19 05:13: Medicated patient at 0345 for 5/10 neck pain. Was alerted by staff at 0500 that patient was reporting 9/10 pain and threatening to call her as she felt her pain wasn't being managed. Medicated patient per MAR with 0.5mg IV Dilaudid for 9/10 pain in neck and back. Patient had been ambulated to the bathroom prior to onset of increased pain. If pain is not managed with IV dilaudid, will notify application security specialist provider. Original Note: Medicating patient for neck pain, 5/10 q3 with 2mg PO Dilaudid. Patient denies back pain.
[2019-08-26 04:05] VITALS: BP 99/67; PULSE 68; RESP 19; TEMP 36.6; O2SAT 98
[2019-08-26] MEDS: HYDROMORPHONE 0.5 MG INJ IV (05:10)
[2019-08-26 08:00] VITALS: BP 137/75; PULSE 77; RESP 16; TEMP 36.3; O2SAT 96
[2019-08-26] MEDS: LOSARTAN 25 MG TABLET 12.5 MG PO (08:01)
[2019-08-26] MEDS: HYDROMORPHONE 4 MG TABLET PO ×6 (08:01→23:57)
[2019-08-26] MEDS: DOCUSATE 100 MG CAPSULE PO ×2 (08:01→20:11)
--- NOTE | 2019-08-26 11:18 | PC.NURSE ---
Addendum entered by Priyanka Hough R.N. 08/26/19 14:33: Patient given a shower an new cover site put on her back. She was just given 4mg of po dilaudid and helpful. Working well with physical therapy. Original Note: 0800- Patient very teary eyed this morning. States that she had a bad night and she did not feel like her pain management was controlled. Explained to patient that we would have her on a every three hour pain regimen of 4mg of po dilaudid and will write on the board when the next pain med is do. She has had 4mg of po dilaudid and again at 1100. Patient is happy with her pain management.This is what we did yesterday on day shift and she states that her pain was manageable. She is moving slow out of bed but is able to get herself up with staff assist. Patient is only 4f 9inches and the bed is too high for her. Dressing to back is bulky with a couple of spots of drainage that is dried. Patient is working with physical therapy now and moving better. She is in better spirits and going to have a shower a bit later.
--- NOTE | 2019-08-26 11:33 | PT.IPTN ---
Current Diagnoses Spondylolisthesis, lumbar region (08/24/19) Other spondylosis with radiculopathy, lumbosacral region (08/24/19) Spinal stenosis, lumbar region with neurogenic claudication (08/24/19) Surgery Performed Operation Date: 08/24/19 13:45 Actual Procedures p L4-5 hemilaminectomy, L5-S1 TLIf w/ posterior instrumentation - Isaias Corbin MD Physical Therapy Treatment Note M2 PT-IP Current Condition Start: 08/25/19 08:30 Freq: NEEDED Status: Active Protocol: Document 08/25/19 10:27 AW (Rec: 08/25/19 10:54 AW [id number]) Physical Therapy Current Condition Current Condition Evaluation Date 08/25/19 Treatment Diagnosis L4-5 marii lami, L5-S1 TLIF, impaired mobility Onset Date 08/24/19 Precautions Lumbar Precautions Log Roll,No Twisting,Limit Bending,Lifting Restriction of 10 lbs,Gait Belt above Incisional Area Weight Bearing Status Weight Bearing Status Full Weight Bearing M3 PT-IP Subjective Start: 08/25/19 08:30 Freq: NEEDED Status: Active Protocol: Document 08/26/19 11:09 KS (Rec: 08/26/19 12:20 KS [id number]) Subjective Physical Therapy Visit Type Type Treatment Note Visit Start Time 11:09 Visit Stop Time 11:33 Total Visit Minutes 24 Number of SEWING LINE BALER Visits 1 Physical Therapy Visit Comments Patient Comments Pt agreeable to work w/ therapy. Therapy Pain Assessment Pain When Pain Assessed After Treatment Pain Present Pain Present Pain Reported Location Back Intensity 4 Scale Used 3/10 at rest Pain Management Techniques Re-positioning M4 PT-IP Mobility and Gait Start: 08/25/19 08:30 Freq: NEEDED Status: Active Protocol: Document 08/26/19 11:09 KS (Rec: 08/26/19 12:20 KS [id number]) PT-Bed Mobility Assessment Rolling Type of Rolling Log Rolling Level of Assist Minimal Assistance Supine to Sit Supine to Sit Minimal Assistance,1 Person Assistance,Head of Bed Elevated,Bedrails Scooting Scooting to Edge of Bed Moderate Assistance PT-Transfer Assessment Sit to and From Stand Sit to and from Stand Contact Guard Assistance,1 Person Assistance,Use of Upper Extremities Equipment Transfer Assistive Device Gait Belt,Front Wheeled Walker Orthotic/Prosthetic Devices or Brace: No Transfers Transfer Destination Chair Transfer Technique Pt ambulated w/ FWW Transfer Ability Level of Assist Contact Guard Assistance, Minimal Assistance,1 Person Assistance Comments Mobility Comments Pt was in bed upon arrival from therapy and able to recall all precautions. Covered LE strengthening exercises to do in bed including ankle pumps, SLR, quad and glute sets. Pt then performed logroll Min A w/o cues. Sidelying to sit Min A min cues for sequencing. Once sitting EOB, pt was able to remain upright on her own for application of gait belt. Mod A for scooting to EOB, once pt was EOB she stood w/ FWW and CGA. She then ambulated CGA to bathroom, performed own pericare, walked to sink to wash hands, cues for bending at hips, and then ambulated in hallway. Upon return to room, pt approached chair to sit w/ proper use of FWW and demonstrated compliance w/ precautions when sittimng. Pt needed Mod A for scooting back in chair. Pt left in chair w/ all needs in reach. Gait Assessment Gait Gait Assistance Required: Standby Assistance,Contact Guard Assist,1 Person Assist Distance (Feet) 100 Able to Maintain Weight Bearing Status Yes During Gait Assistive Devices Assistive Device Gait Belt,Front Wheeled Walker Gait Deviations General Gait Pattern Antalgic,Decreased Stride Length,Decreased Feet Clearance,Step-to Gait Factors Limiting Gait Function Factors Limiting Gait Function Decreased Activity Tolerance, Decreased Strength,Pain,Poor Safety Awareness Comments Gait Comments Pt used FWW today instead of 4WW and stated that she felt safer walking w/ it, but it is harder to maneuver. Pt ambulated ~100 ft, from bed to bathroom then out in hallway and back to chair in room. Pt has slow gait w/ decreased stride length and foot clearance d/t pain and decreased activity tolerance. Pt demonstrated proper use of FWW throughout ambulation and needed min cues when approaching chair w/ FWW to sit. Stair Climbing Assessment Comments Stair Climbing Comments Not assessed. No stairs at home. PT-Balance Assessment Sitting Balance and Reactions Static Sitting Balance Ability Good Dynamic Sitting Balance Ability Good Standing Balance and Reactions Static Standing Balance Ability Good Dynamic Standing Balance Ability Good Device Used FWW M5 PT-IP Objective Assessments Start: 08/25/19 08:30 Freq: NEEDED Status: Active Protocol: Document 08/25/19 10:27 AW (Rec: 08/25/19 10:54 AW [id number]) Orientation Orientation/Cognition Level of Alertness Alert Orientation Name,Month,Place,Situation Language Function Ability No Deficits Noted Safety Awareness Understands Safety Issues Memory Description No Deficits Noted Gross Range of Motion Lower Extremity ROM Assessment Within Functional Limits Strength Lower Extremity Strength Assessment Bilaterally Impaired Comments Strength Comments BLE grossly 4/5 Coordination Assessment Gross Coordination Gross Coordination WNL Sensation Assessment Sensation Gross Sensation WNL M6 PT-IP Treatment Start: 08/25/19 08:30 Freq: NEEDED Status: Active Protocol: Document 08/26/19 11:09 KS (Rec: 08/26/19 12:20 KS [id number]) Physical Therapy Treatment Exercises Exercises Ankle Pumps,Gluteal Sets,Quad Sets,Straight Leg Raises Education Education Provided Precautions,Post-Op Packet, Safety Other Treatments Other Treatment Performed Discussed precautions, LE strengthening exercises, and getting FWW from [facility] for home use. M7 PT-IP Assessment and Plan Start: 08/25/19 08:30 Freq: NEEDED Status: Active Protocol: Document 08/26/19 11:09 KS (Rec: 08/26/19 12:20 KS [id number]) PT Summary Assessment and Plan Summary Impairments Pain,ROM,Strength,Bed Mobility ,Transfers,Gait,Activity Tolerance Progress Towards Goals Progressing Toward Goals Assessment Summary Pt is still requiring assist w / logroll, sidelying to sit, and scooting EOB, but is able to sit<>stand<>sit w/ FWW and CGA. SBA to CGA for ambulation , pt has slow gait w/ decreased stride. Pt states she feels safer using FWW for ambulation even though 4WW is easier to maneuver. Pt stated that someone in her family will be able to get [facility] Goals Bed Mobility Goal Standby Assistance Transfer Goal Standby Assistance,Front Wheeled Walker,Four Wheeled Walker Gait Goal Standby Assistance,Front Wheel Walker,Four Wheel Walker Gait Distance 250 Days to Meet Goals 2 Frequency of Treatment Frequency Of Treatment Twice a Day Treatment Plan Physical Therapy Treatment Plan Bed Mobility Training,Transfer Training,Gait Training, Therapeutic Exercise,Balance Retraining,Post Op Education, Discharge Planning,Hot or Cold Pack,Neuromuscular Re-ed, Coordination Retraining,Manual Therapy Other Recommendations and Next Treatment trial pediatric FWW (pt 4'9); Focus progress gait distance Recommendations To Nursing Amount of Assist Needed 1 Person Assist Discharge Recommendations PT Discharge Recommendations Home with Assistance Equipment Needed for Home Before may need FWW; tub transfer Discharge bench Transportation Needs at Discharge Private Vehicle
--- NOTE | 2019-08-26 11:35 | CM.DANOTE ---
DCP Assessment: EMR reviewed: Patient is a 59 yr old female who was admitted to the hospital for multiple spinal surgeries preformed by Dr BUNCH. Patients PCP is Dr Umana. Cm/Rn met with patient at the bedside and explained role. Patient was alert and orientedx3 during visit. Patient is mostly Independent with ADL's prior to surgery patients did assist patient with dressing. Patient did drive prior to surgery. Nicole ariza lives in a single level home with no stairs to get into the home and has FWW, Cane and a walk in shower. PT recommendation is how with assistance. Patients will be home for a few days from work then patients sister will be staying with her until she is healed. I: Carbaj[employer] and self pay Plan: D/C home with family to assist with care of patient when medically stable. No identified D/C planning needs noted at this time. Cm department will follow to assist with any new D/C planning needs that might arise. Karis Sarkar RN Discharge Planning/Care Management CM Discharge Assessment Start: 08/26/19 11:32 Freq: Status: Active Protocol: Document 08/26/19 11:33 HS (Rec: 08/26/19 11:35 [id number]) Discharge Planning Assessment Assigned Communicable Disease Specialist Karis Sarkar RN DPOA/Assigned Designee Name Seferino cruz (life partner) Contact Information [phone] Advance Directives? No History Provided By Patient Has Patient been admitted in last 30 No days? Prior Living Arrangements House Household Members spouse,family Type of transporation used prior to Drives own vehicle admit Independent with ADL's Yes: Prior to surgery patient did need help with Dressing Is patient alert and oriented? Yes Needs Assistance With Grooming Caregiver for Another No DME Already Rented / Owned FWW / Walker,Cane Barriers to Discharge No Discharge Plan Home Referrals Initiated None needed Whiteboard Updated in Patient Room with Yes name and ext. # of Communicable Disease Specialist Review Status In Process Next Review Type Continued Stay Review Pre-Anesthesia Assessment Start: 08/15/19 08:49 Freq: Status: Active Protocol: Document 08/15/19 08:49 CAB (Rec: 08/15/19 09:33 CAB [id number]) Pre-Anesthesia Assessment Patient Information Reviewed Via Phone Assessment Assessment Completed With Patient Comment Labs/EKG done per pt, Surgeon has everything - not in system @ present Primary Care Provider Nupur Umana Seen Specialist in Last 12 Months Yes Specialist Seen Oncologist,Orthopedist Primary Language Lithuanian [employer]rop Harvest Contractor Required No Height 144.78 cm Weight 62.596 kg Body Mass Index (BMI) 29.8 Hearing Ability Normal Visual Impairment No Limitations Visual Assist None Dentition Type Teeth, Natural Present,Teeth, Missing Barriers to Learning None Hx Anesthesia Reactions No Hx Family Anesthesia Reaction No Hx Malignant Hyperthermia No Hx Blood Transfusions No Anesthesia Review Requested No alcohol intake current alcohol intake frequency a few times a week Smoking Status Former smoker Tobacco type cigarettes how long ago did patient quit smoking Quit 2 months ago Substance Use Type does not use Pain Present Pain Reported Musculoskeletal Symptoms Abnormal Gait,Back Pain, Difficulty Walking,Muscle Spasms,Numbness,Radiating Pain into Limb,Tingling History of Falling (Recent or History of No ) Patient is completely paralyzed or No completely immobile Prosthesis or Orthotic Device Cane Mental Status Oriented to own ability Is patient on oxygen? No Does patient have SHELDON/SOB No Hx Sleep Apnea No Currently Taking a Beta Angela No Can You Climb a Flight of Stairs Without Yes SOB Hx Chest Pain No Hx SOB No Hx Syncope or Dizziness No Anti-Coagulant Therapy No Has a Health Practice Manager No Cardiac Testing No Hx Pacemaker/ICD No Pacemaker Rep Required? No Cardiac Clearance Received Not Applicable Diet Type At Home Regular dysphagia No Urinary Catheter Present No Hx Urinary Self Catheterization No Diabetes No Patient No Lactating No Hx Drug Resistant Organism No Presence of External or Internal Medical Yes: Marker left breast Devices Have you traveled outside the [facility] States in the last 30 days? Marital Status Lives With significant other,family Prior Living Arrangements House Number of Floors (Floors) One Floor Support System Parent(s),Sibling(s), Significant Other Does the Patient Have Assistance After Yes Surgery Patient Discharge Plan Description Return Home Comment Pt advised 2 day length of stay per surgeon Feels Safe in Current Environment Yes Been Physically Hurt or Threatened By a No Person in Current Environment Do you have thoughts of harming yourself None or others? Are you currently considering suicide? No Do you have a plan to hurt yourself or No Plan others? Do You Have Any Spiritual Beliefs That No May Affect Your HC Choices? Do You Have Any Cultural Practices That No May Affect Your HC Choices? Comment Baptist Who Can We Speak to About Patient's Care Family, friends Identifying Code for Release of Patient Declines to issue Information Health Care Proxy/Next of Kin Anitha Hinojosa (sisters) Health Care Proxy Phone Number Pt to update phone numbers dos Emergency Contact Name Anitha Hinojosa (sisters) Emergency Contact Phone Number Pt to update phone numbers dos Advance Directives? No Power of River Transportation Worker No PAC Instructions Durable medical equipment, Medications to take/avoid, Nasal antibiotic,No ETOH/ petroleum product on skin DOS, NPO,Post-op transportation,Pre -surgical wash,Sturdy shoes/ comfortable clothes,Do not bring valuables and remove jewelry
--- NOTE | 2019-08-26 12:47 | OT.IPNOTE ---
Spoke to pt regrading in having any other questions for OT needs as pt going home today. Able to suggest to wear pads at night and try to relax. Pt seen for a few minutes, no charge.
--- NOTE | 2019-08-26 12:59 | PM.PN.1 ---
Subjective Subjective Date Patient Seen: 08/26/19 Time Patient Seen: 12:59 Interval history: Patient is POD#2 s/p L4-5 hemilaminectomy, L5-S1 TLIF with Dr. Corbin. Pain control improved with regular administration of PO Dilaudid. Mobilized with PT but continues to have difficulty with transfers. She denies any chest pain, shortness of breath, nausea or vomiting. Exam Vital Signs (past 8 hours): - 08/26/19 08:00 Temperature 97.3 F L Pulse Rate 77 Respiratory Rate 16 Blood Pressure 137/75 Pulse Oximetry 96 Oxygen Delivery Method Room Air Oxygen Flow Rate 0 Narrative Exam Narrative: 59 year old female resting in bed in some discomfort. Alert and oriented. Dressing is CDI. 5/5 BLE. Calves soft, compressible. Palpable pedal pulse. Objective Labs Result Diagrams: 08/25/19 08:41 Assessment & Plan Assessment & Plan narrative: Patient progressing post operatively. Continue to work with PT, having difficulty with transfers. Patient plans to acquire FWW. Will convert dressing to coversite prior to discharge. Possible discharge to home after PT today if improved mobility, otherwise discharge to home tomorrow.
--- NOTE | 2019-08-26 14:38 | PT.IPTN ---
Current Diagnoses Spondylolisthesis, lumbar region (08/24/19) Other spondylosis with radiculopathy, lumbosacral region (08/24/19) Spinal stenosis, lumbar region with neurogenic claudication (08/24/19) Surgery Performed Operation Date: 08/24/19 13:45 Actual Procedures p L4-5 hemilaminectomy, L5-S1 TLIf w/ posterior instrumentation - Isaias Corbin MD Physical Therapy Treatment Note M2 PT-IP Current Condition Start: 08/25/19 08:30 Freq: NEEDED Status: Active Protocol: Document 08/25/19 10:27 AW (Rec: 08/25/19 10:54 AW [id number]) Physical Therapy Current Condition Current Condition Evaluation Date 08/25/19 Treatment Diagnosis L4-5 marii lami, L5-S1 TLIF, impaired mobility Onset Date 08/24/19 Precautions Lumbar Precautions Log Roll,No Twisting,Limit Bending,Lifting Restriction of 10 lbs,Gait Belt above Incisional Area Weight Bearing Status Weight Bearing Status Full Weight Bearing M3 PT-IP Subjective Start: 08/25/19 08:30 Freq: NEEDED Status: Active Protocol: Document 08/26/19 14:07 KS (Rec: 08/26/19 16:32 KS [id number]) Subjective Physical Therapy Visit Type Type Treatment Note Visit Start Time 14:07 Visit Stop Time 14:38 Total Visit Minutes 31 Number of CORE FILER Visits 2 Physical Therapy Visit Comments Patient Comments Pt agreeable to work w/ therapy. Pts and sister present for initiation of caregiver training. M4 PT-IP Mobility and Gait Start: 08/25/19 08:30 Freq: NEEDED Status: Active Protocol: Document 08/26/19 14:07 KS (Rec: 08/26/19 16:32 KS [id number]) PT-Bed Mobility Assessment Rolling Type of Rolling Log Rolling Level of Assist Minimal Assistance Sit to Supine Sit to Supine Minimal Assistance,2 Person Assistance Scooting Scooting to Edge of Bed Contact Guard Assistance PT-Transfer Assessment Sit to and From Stand Sit to and from Stand Contact Guard Assistance,1 Person Assistance,Use of Upper Extremities Equipment Transfer Assistive Device Gait Belt,Front Wheeled Walker Orthotic/Prosthetic Devices or Brace: No Transfers Transfer Destination Bed Transfer Technique Pt ambulated w/ FWW Transfer Ability Level of Assist Contact Guard Assistance, Minimal Assistance,1 Person Assistance Comments Mobility Comments Pt was washing hands at sink upon arrival from therapy. Pt stated that she had just gotten out of bed and performed logroll w/ assistance from ans sister and decribed it as rough. CORE FILER then demonstrated to pts and sister how to apply gait belt. Pt then ambulated w/ FWW and CGA ~80 ft w/ slow pace and decreased stride and foot clearance. Demonstrated to pts caregivers how to hold onto to gait belt and assist w/ FWW management if needed. Pt then returned to room and sat in and scooted back in bed CGA. Discussed making platform step for pt at home so her feet can touch the floor. Pt then performed logroll back into bed with Min A x2 w/ CORE FILER assisting shoulders and asssiting LE. Pt positioned comfortably in bed w/ all needs in reach. Gait Assessment Gait Gait Assistance Required: Standby Assistance,Contact Guard Assist,1 Person Assist Distance (Feet) 80 Able to Maintain Weight Bearing Status Yes During Gait Assistive Devices Assistive Device Gait Belt,Front Wheeled Walker Gait Deviations General Gait Pattern Antalgic,Decreased Stride Length,Decreased Feet Clearance,Step-to Gait Factors Limiting Gait Function Factors Limiting Gait Function Decreased Activity Tolerance, Decreased Strength,Pain,Poor Safety Awareness Comments Gait Comments Please refer to mobility section for details. Stair Climbing Assessment Comments Stair Climbing Comments Not assessed. No stairs at home. PT-Balance Assessment Sitting Balance and Reactions Static Sitting Balance Ability Good Dynamic Sitting Balance Ability Good Standing Balance and Reactions Static Standing Balance Ability Good Dynamic Standing Balance Ability Good Device Used FWW M5 PT-IP Objective Assessments Start: 08/25/19 08:30 Freq: NEEDED Status: Active Protocol: Document 08/25/19 10:27 AW (Rec: 08/25/19 10:54 AW [id number]) Orientation Orientation/Cognition Level of Alertness Alert Orientation Name,Month,Place,Situation Language Function Ability No Deficits Noted Safety Awareness Understands Safety Issues Memory Description No Deficits Noted Gross Range of Motion Lower Extremity ROM Assessment Within Functional Limits Strength Lower Extremity Strength Assessment Bilaterally Impaired Comments Strength Comments BLE grossly 4/5 Coordination Assessment Gross Coordination Gross Coordination WNL Sensation Assessment Sensation Gross Sensation WNL M6 PT-IP Treatment Start: 08/25/19 08:30 Freq: NEEDED Status: Active Protocol: Document 08/26/19 14:07 KS (Rec: 08/26/19 16:32 KS [id number]) Physical Therapy Treatment Education Education Provided Precautions,Safety Other Treatments Other Treatment Performed Initiated caregiver training. M7 PT-IP Assessment and Plan Start: 08/25/19 08:30 Freq: NEEDED Status: Active Protocol: Document 08/26/19 14:07 KS (Rec: 08/26/19 16:32 KS [id number]) PT Summary Assessment and Plan Summary Impairments Pain,ROM,Strength,Bed Mobility ,Transfers,Gait,Activity Tolerance Progress Towards Goals Progressing Toward Goals Assessment Summary Pt continues to have weakness and pain during mobility and would benefit from continued therapy to assess strength and bed mobility deficits as well as complete caregiver training. Pt is Min A for logroll and CGA for sit<>stand <>sit, requiring some cues for logroll. CGA for ambulation. Will complete caregiver training tomorrow morning. Goals Bed Mobility Goal Standby Assistance Transfer Goal Standby Assistance,Front Wheeled Walker,Four Wheeled Walker Gait Goal Standby Assistance,Front Wheel Walker,Four Wheel Walker Gait Distance 250 Days to Meet Goals 2 Treatment Plan Physical Therapy Treatment Plan Bed Mobility Training,Transfer Training,Gait Training, Therapeutic Exercise,Balance Retraining,Post Op Education, Discharge Planning,Hot or Cold Pack,Neuromuscular Re-ed, Coordination Retraining,Manual Therapy Other Recommendations and Next Treatment finish caregiver training, Focus further ambulation Recommendations To Nursing Amount of Assist Needed 1 Person Assist Discharge Recommendations PT Discharge Recommendations Home with Assistance Equipment Needed for Home Before may need FWW; tub transfer Discharge bench Transportation Needs at Discharge Private Vehicle
[2019-08-26 15:55] VITALS: BP 104/48; PULSE 75; RESP 18; TEMP 36.4; O2SAT 96
[2019-08-26] MEDS: hydrOXYzine pamoate 25 MG CAPSULE PO ×2 (17:59→22:44)
[2019-08-26] MEDS: SENNOSIDES 8.6 MG TABLET 17.2 MG PO (20:11)
[2019-08-26 23:30] VITALS: BP 102/63; PULSE 65; RESP 18; TEMP 36.9; O2SAT 96
[2019-08-27] MEDS: HYDROMORPHONE 0.5 MG INJ IV (01:25)
[2019-08-27] MEDS: hydrOXYzine pamoate 25 MG CAPSULE PO ×3 (02:32→10:45)
[2019-08-27] MEDS: HYDROMORPHONE 4 MG TABLET PO ×3 (02:32→09:24)
[2019-08-27 05:40] VITALS: BP 121/70; PULSE 69; RESP 18; TEMP 37.1; O2SAT 98
--- NOTE | 2019-08-27 07:57 | PM.DS.1 ---
History of Present Illness History of Present Illness Date Patient Seen: 08/27/19 Time Patient Seen: 07:58 Chief complaint: Translaminar Interbody Fusion/Laminotomy Narrative: Pain moderate to severe. Wants to go home. home to assist her. Denies fever or chills. Discharge Providers Provider Date of admission: 08/24/19 11:24 Discharge Date: 08/27/19 Primary care physician: Nupur Umana PA-C Consults: 08/24/19 19:18 Consult to Occupational Therapy Evaluate & Treat Comment: Physician Instructions: Evaluate and treat Consult to Physical Therapy Evaluate & Treat Comment: Physician Instructions: Evaluate and Treat Discharge provider: Clifford Colin PA-C Summary Hospital Course Discharge Diagnosis: Pre-op diagnosis: 1. L5-S1 spondylolisthesis 2. L4-5, L5-S1 spinal stenosis 3. L4-5, L5-S1 spondylosis with radiculopathy Post-op diagnosis: same Hospital Course: Procedure: 1. L5-S1 Postero-lateral and posterior interbody fusion 2. L5-S1 interbody cage placement. 3. L5-S1 decompressive laminectomy with bilateral facetecomies 4. L5-S1 Posterior non-segmental instrumentation 5. L4-5 hemilaminectomy 6. [place] of bone marrow from iliac crest 7. Utilization of microsurgical technique and operating microscope Same procedure as scheduled: Yes Indications: Patient has been having chronic back pain and worsening lumbar radiculopathy. Patient failed multiple conservative management with worsening pain weakness and numbness in her lower extremity. Patient has been having difficulty performing activity of daily living. After discussing risks benefits of treatment options, patient elected proceed with surgery. Surgeon: Isaias Corbin Professor Of Latin American Studies: Alena Mckoy Click Yes if Unassisted: No Anesthesia Type: General Operative Notes Closure Type: primary Specimen(s): none sent Prosthetic devices, grafts, tissues, transplants, or devices: Globus revolve screws, Rise cage Estimated Blood Loss (mL): 50 Blood products transfused: none Status at Discharge Cognitive/behavioral status at discharge: at baseline, oriented Functional status at discharge: uses cane/walker Overall status at discharge: patient is progressing back to baseline Time Spent with Patient Time spent: Less than 30 minutes Exam Vital Signs (past 8 hours): - 08/27/19 05:40 Temperature 98.8 F Pulse Rate 69 Respiratory Rate 18 Blood Pressure 121/70 Pulse Oximetry 98 Oxygen Delivery Method Room Air Oxygen Flow Rate 0 Objective Labs Result Diagrams: 08/25/19 08:41 Discharge Plan Discharge Plan Patient Disposition: Home Discharge comment: DC home today after PT Discharge orders & Medications Prescriptions: New hydromorphone 4 mg Tablet 4 mg PO Q3HR PRN (Reason: Pain, Severe (7-10)) Qty: 60 RF: 0 hydroxyzine pamoate 25 mg Capsule 25 mg PO Q4HR PRN (Reason: Nausea And Vomiting) Qty: 40 RF: 0 ondansetron HCl [Zofran] 4 mg tablet 4 mg PO Q8H PRN (Reason: nausea and vomiting) Qty: 20 RF: 0 Continued losartan 25 mg Tablet 12.5 mg PO DAILY RF: 0 gabapentin 300 mg Capsule 300 mg PO DAILY PRN (Reason: Pain) RF: 0 acetaminophen 500 mg Capsule 1,000 mg PO BID-TID PRN (Reason: Pain) RF: 0 Follow up/Referrals: Nupur Umana PA-C [Primary Care Provider] - Isaias Corbin MD [Physician] - (2 wks) Diet/Activity/Treatments Diet: Diet as Tolerated Activity: Limit bending, twisting, lifting Cold/Heat Therapy: ice to low back as needed Skin/Wound/Dressing Care Report to your healthcare provider any signs of infection, such as:: chills, fever, increased pain, unusual drainage and unusual redness Dressing: keep clean and dry Visit Report/Discharge Packet Instructions: DI for Prescription Opioid Use, DI for Transforaminal Lumbar Interbody Fusion Stand Alone Forms: Surgery Discharge Discharge Data Primary Care Provider: Nupur Umana
[2019-08-27 08:00] VITALS: BP 151/75; PULSE 84; RESP 18; TEMP 36.6; O2SAT 100
[2019-08-27] MEDS: LOSARTAN 25 MG TABLET 12.5 MG PO (09:24)
[2019-08-27] MEDS: DOCUSATE 100 MG CAPSULE PO (09:24)
[2019-08-27] MEDS: ACETAMINOPHEN 325 MG TABLET 650 MG PO (09:24)
--- NOTE | 2019-08-27 09:33 | OT.IP.TRT ---
Current Diagnoses Spondylolisthesis, lumbar region (08/24/19) Other spondylosis with radiculopathy, lumbosacral region (08/24/19) Spinal stenosis, lumbar region with neurogenic claudication (08/24/19) Surgery Performed Operation Date: 08/24/19 13:45 Actual Procedures p L4-5 hemilaminectomy, L5-S1 TLIf w/ posterior instrumentation - Isaias Corbin MD Occupational Therapy Treatment Note M2 OT-IP Current Condition Start: 08/25/19 16:24 Freq: Status: Active Protocol: Document 08/25/19 10:18 PJM (Rec: 08/25/19 16:43 PJM [id number]) Occupational Therapy Current Condition Current Condition Evaluation Date 08/25/19 Treatment Diagnosis decreased self care, mobility s/p L5-S1 lami w/PLIF Post Operative Precautions Lumbar Precautions Log Roll,No Twisting,Limit Bending,Lifting Restriction of 10 lbs,Gait Belt above Incisional Area M3 OT- IP Subjective and Pain Start: 08/25/19 16:24 Freq: Status: Active Protocol: Document 08/27/19 09:23 [facility] (Rec: 08/27/19 09:33 [facility] [id number]) OT- Subjective Occupational Therapy Visit Type Type Treatment Note Visit Start Time 08:44 Visit Stop Time 09:23 Total Visit Minutes 39 Occupational Therapy Visit Comments Patient Comments Pt states would like to get dressed and feeling ready to go home. 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 Education to bend at hips or spit into a cup to adhere to back precautions. OT ADL-Dressing General Eval Lower Body Dressing Ability Moderate Assistance Comments OT Dressing Comments Pt not wanting sock aid , therefore assist pt with socks and shoes. Pt able to appropriately use the counter supply worker to sheila her brief and pants. Pt's family to be able to assist for all needs. OT ADL-Toileting General Evaluation Areas Needing Assistance Perform Perineal Hygiene Comments OT Toileting Comments Pt able ot reach from the front and encouraged her to get a toilet aid as having difficulty to reach from behind. M5 OT- IP IADL's Start: 08/25/19 16:24 Freq: Status: Active Protocol: Document 08/25/19 10:18 PJM (Rec: 08/25/19 16:43 PJM [id number]) OT-Instrumental Activities of Daily Living Deficits IADL Deficits Identified Deficits Home Safety Awareness Awareness of Need for Assistance at Home Good Awareness Ability to Problem Solve Emergency Able to Problem Solve Situations Home Safety Comments Pt will have assist with all IADLS from sister and . Medication Management Medication Management No Deficits Identified Money Management Money Management No Deficits Identified Meal Preparation Meal Preparation Caregiver Provides Assist Manager Pricing Manager Pricing Caregiver Provides Assist Driving Driving Concerns Identified Regarding Safety M6 OT- IP Functional Cognition Start: 08/25/19 16:24 Freq: Status: Active Protocol: Document 08/27/19 09:23 [facility] (Rec: 08/27/19 09:33 [facility] [id number]) Cognitive Factors Limiting Selfcare Function Cognitive Ability Level of Alertness Alert Patient Orientation Name,Age,Birthday,Month,Date, Year,Day of Week,Place, Situation Cognitive Comments Cognitive Assessment Comments No deficits. M7 OT- IP Mobility and Balance Start: 08/25/19 16:24 Freq: Status: Active Protocol: Document 08/27/19 09:23 [facility] (Rec: 08/27/19 09:33 [facility] [id number]) OT- Bed Mobility Assessment Rolling Type of Rolling Roll to Left Supine to Sit Supine to Sit Assist Moderate Assistance,1 Person Assistance,Bedrails OT-Transfer Assessment Sit to and From Stand Sit to and from Stand Standby Assistance Transfers Transfer Ability Standby Assistance Technique Transfer Destination Bed,Chair,Toilet Devices Transfer Assistive Devices Gait Belt,Front Wheeled Walker Comments Mobility Comments Bed mobility needing MODA and suggested may want to cook pickled meat a bed rail to increase ease from supine to sit. Ice pack place on pt due to pain. Pt wanting to stand however able to have pt sit to recliner especially in no one in around to assist her in her room. OT- Balance Assessment Sitting Balance and Reactions Static Sitting Balance Ability Normal Dynamic Sitting Balance Ability Good Standing Balance and Reactions Static Standing Balance Ability Good M8 OT- IP Objective Assessments Start: 08/25/19 16:24 Freq: Status: Active Protocol: Document 08/25/19 10:18 PJM (Rec: 08/25/19 16:43 PJM [id number]) OT Gross Range of Motion Upper Extremity Range of Motion Assessment Within Functional Limits OT Strength Upper Extremity Strength Assessment Within Functional Limits OT- Coordination Assessment Upper Extremity Finger to Nose Test Right UE Impaired OT-Muscle Tone Assessment Muscle Tone WNL Yes OT Sensation Assessment Comments Summary Comments BUE WNL per pt Edema Edema Absent M9 OT- IP Assessment and Plan Start: 08/25/19 16:24 Freq: Status: Active Protocol: Document 08/27/19 09:23 [facility] (Rec: 08/27/19 09:33 [facility] [id number]) OT Summary Assessment and Plan Potential Rehabilitation Potential Good Analytic Complexity at Evaluation Low Summary OT Impairments Pain,Functional Mobility, Grooming,Dressing,Toileting, Bathing,Toilet Transfers, Shower Transfers,Activity Tolerance Progress Towards Goals Progressing Toward Goals Assessment Summary Pt doing well, mainly due to pain needing assist for bed mobility needs. Pt to have supportive family to be able to assist for all ADl and fucntional mobility needs. Pt to be discharge home today. Goals Grooming Goal Standby Assistance Dressing Goal Standby Assistance,Service Coordinator Toileting Goal Standby Assistance,Toilet Paper Aid Bathing Goal Standby Assistance,Hand Held Shower Sprayer,Long Handled Sponge or [place] Toilet Transfer Goal Standby Assistance Shower Transfer Goal Contact Guard Assistance,Walk- in Shower,Shower Chair Patient/Caregiver Education Goal Demonstrate Post-Op Precautions,Demonstrate Energy Conservation and Pacing, Caregiver Independent Assisting Patient Days to Meet Goals 1 Frequency of Treatment Frequency Of Treatment Once a Day Treatment Plan OT Treatment Plan Patient/Family Education, Discharge Planning Discharge Recommendations OT Discharge Recommendations Home with 19/01 Assist Home Equipment Needs shower seat, toilet aid, bed rail Transportation Needs at Discharge Private Vehicle
--- NOTE | 2019-08-27 10:37 | PT.IPTN ---
Current Diagnoses Spondylolisthesis, lumbar region (08/24/19) Other spondylosis with radiculopathy, lumbosacral region (08/24/19) Spinal stenosis, lumbar region with neurogenic claudication (08/24/19) Surgery Performed Operation Date: 08/24/19 13:45 Actual Procedures p L4-5 hemilaminectomy, L5-S1 TLIf w/ posterior instrumentation - Isaias Corbin MD Physical Therapy Treatment Note M2 PT-IP Current Condition Start: 08/25/19 08:30 Freq: NEEDED Status: Discharge Protocol: Document 08/25/19 10:27 AW (Rec: 08/25/19 10:54 AW [id number]) Physical Therapy Current Condition Current Condition Evaluation Date 08/25/19 Treatment Diagnosis L4-5 marii lami, L5-S1 TLIF, impaired mobility Onset Date 08/24/19 Precautions Lumbar Precautions Log Roll,No Twisting,Limit Bending,Lifting Restriction of 10 lbs,Gait Belt above Incisional Area Weight Bearing Status Weight Bearing Status Full Weight Bearing M3 PT-IP Subjective Start: 08/25/19 08:30 Freq: NEEDED Status: Discharge Protocol: Document 08/27/19 10:14 [place] (Rec: 08/27/19 12:16 [place] [id number]) Subjective Physical Therapy Visit Type Type Treatment Note Visit Start Time 10:14 Visit Stop Time 10:37 Total Visit Minutes 23 Number of CLIENT RELATIONSHIP MANAGER Visits 3 Physical Therapy Visit Comments Patient Comments Pt and caregivers agreeable to work with therapy and complete caregiver training. Patient Goals Pt hopes to discharge to home with family assist Therapy Pain Assessment Pain When Pain Assessed At Rest Pain Present Pain Present Pain Reported Location Neck Intensity 7 Scale Used Shepard-Amos (Faces) Pain Behaviors Guarding Pain Management Techniques Timing of Activity with Medications M4 PT-IP Mobility and Gait Start: 08/25/19 08:30 Freq: NEEDED Status: Discharge Protocol: Document 08/27/19 10:14 [place] (Rec: 08/27/19 12:16 [place] [id number]) PT-Bed Mobility Assessment Rolling Type of Rolling Log Rolling Level of Assist Minimal Assistance,1 Person Assistance,2 Person Assistance Sit to Supine Sit to Supine Minimal Assistance,1 Person Assistance Scooting Scooting to Edge of Bed Standby Assistance PT-Transfer Assessment Sit to and From Stand Sit to and from Stand Standby Assistance,Contact Guard Assistance,1 Person Assistance,Use of Upper Extremities Equipment Transfer Assistive Device Gait Belt,4 Wheeled Walker Orthotic/Prosthetic Devices or Brace: No Transfers Transfer Destination Bed,Chair Transfer Technique Pt ambulated w/ 4WW Transfer Ability Level of Assist Standby Assistance,Contact Guard Assistance,1 Person Assistance Comments Mobility Comments Pt was sitting up in chair upon arrival from therapy w/ her in sister in room. Pt reported 7/10 pain prior to treatment, but did not increase w/ ambulation. Pts sister applied gaitbelt to pt, required min cues for tightening. Pt then stood CGA provided by sister, but could have done SBA. Pt demonstrated proper use of 4WW when standing. After standing, pt ambulated ~150 ft w/ 4WW and CGA provided by sister ~75 ft and then for remaining ~75 ft back to room. Pt ambulated w/ slow safe pace, w / cues to relax shoulders. She demonstrated proper use of 4WW and is able to maneuver it easier than FWW. Pts caregivers were able to provide correct guarding during ambulation. Pt able to increase stride length today. After ambulation, pt returned to room to perform logroll in bed. Pt stand<>sit EOB w/ 4WW and SBA. Pt scooted back in bed w/ CGA provided by . She then performed logroll into bed w/ Min A x2 provided by for shoulder guidance and LE guidance back into bed. Pt is hesistant to logroll and requested assist w / LE from sister, but not necessary. Pt then logrolled to R to get back out of bed, w / Min A provided by for pt to push up onto elbow. Pt stated that she had no pain during second logroll. Pt then stood and ambulated w/ 4WW SBA. Pt was able to adhere to precautions throughout treatment and was left in room w/ sister and and all needs in reach. Gait Assessment Gait Gait Assistance Required: Standby Assistance,Contact Guard Assist,1 Person Assist Distance (Feet) 150 Able to Maintain Weight Bearing Status Yes During Gait Assistive Devices Assistive Device Gait Belt,4 Wheeled Walker Gait Deviations General Gait Pattern Antalgic,Decreased Feet Clearance Factors Limiting Gait Function Factors Limiting Gait Function Decreased Activity Tolerance, Decreased Strength,Pain Comments Gait Comments Please refer to mobility section for details. Stair Climbing Assessment Comments Stair Climbing Comments Not assessed. No stairs at home. PT-Balance Assessment Sitting Balance and Reactions Static Sitting Balance Ability Good Dynamic Sitting Balance Ability Good Standing Balance and Reactions Static Standing Balance Ability Good Dynamic Standing Balance Ability Good Device Used FWW M5 PT-IP Objective Assessments Start: 08/25/19 08:30 Freq: NEEDED Status: Discharge Protocol: Document 08/25/19 10:27 AW (Rec: 08/25/19 10:54 AW [id number]) Orientation Orientation/Cognition Level of Alertness Alert Orientation Name,Month,Place,Situation Language Function Ability No Deficits Noted Safety Awareness Understands Safety Issues Memory Description No Deficits Noted Gross Range of Motion Lower Extremity ROM Assessment Within Functional Limits Strength Lower Extremity Strength Assessment Bilaterally Impaired Comments Strength Comments BLE grossly 4/5 Coordination Assessment Gross Coordination Gross Coordination WNL Sensation Assessment Sensation Gross Sensation WNL M6 PT-IP Treatment Start: 08/25/19 08:30 Freq: NEEDED Status: Discharge Protocol: Document 08/27/19 10:14 [place] (Rec: 08/27/19 12:16 KS [id number]) Physical Therapy Treatment Education Education Provided Precautions,Post-Op Packet, Safety Other Treatments Other Treatment Performed Completed caregiver training w / pts and sister. M7 PT-IP Assessment and Plan Start: 08/25/19 08:30 Freq: NEEDED Status: Discharge Protocol: Document 08/27/19 10:14 KS (Rec: 08/27/19 12:16 [place] [id number]) PT Summary Assessment and Plan Potential Rehabilitation Potential Excellent Status of Condition at Evaluation Stable Summary Impairments Pain,ROM,Strength,Bed Mobility ,Transfers,Gait,Activity Tolerance Progress Towards Goals Progressing Toward Goals Assessment Summary Pt is showing progress w/ mobility and ambulation, but remains limited because of pain and weakness. Pt is requiring Min A for logroll getting into and out of bed, but need for assistance is partially d/t pts reported fear of breaking precautions. Pt ambulated safely ~150 ft. w / 4WW and CGA provided by pts and sister, but later stood from bed and ambulated around room SBA. Pts and sister were able to provide appropriate assist to pt today and had good carryover of techniques that were shown to them yesterday. Pt able to recall and adhere to all precautions. Caregiver training complete, pt and caregivers state that they feel safe to go home today. Goals Bed Mobility Goal Standby Assistance Transfer Goal Standby Assistance,Front Wheeled Walker,Four Wheeled Walker Gait Goal Standby Assistance,Front Wheel Walker,Four Wheel Walker Gait Distance 250 Days to Meet Goals 2 Frequency of Treatment Frequency Of Treatment Twice a Day Treatment Plan Physical Therapy Treatment Plan Bed Mobility Training,Transfer Training,Gait Training, Therapeutic Exercise,Balance Retraining,Post Op Education, Discharge Planning,Hot or Cold Pack,Neuromuscular Re-ed, Coordination Retraining,Manual Therapy Other Recommendations and Next Treatment finish caregiver training, Focus further ambulation Recommendations To Nursing Amount of Assist Needed 1 Person Assist Discharge Recommendations PT Discharge Recommendations Home with Assistance Equipment Needed for Home Before tub transfer bench Discharge Transportation Needs at Discharge Private Vehicle
--- NOTE | 2019-08-27 12:04 | PC.NURSE ---
Discharge: IV dc'd intact. Reviewed all d/c instructions with patient and family. Instructed to leave dressing on until follow up and to keep it clean and dry. Reviewed s/sx that would warrant a call to Dr Corbin's office. Given info re: avoiding constipation, encouraged OTC bowel meds as needed at home, along w/ good hydration etc.. Reiterated importance of following spine precautions as taught. Patient verbalized understanding of d/c instructions and stated no further questions. All belongings collected and sent with patient. Wheeled out to private vehicle by nursing staff.
== END 2019-08-27 12:11 | disposition home or self-care (01) | DRG 455 ==
PROVIDERS: Physician Assistant Surgical; Admitting Provider Orthopaedic Surgery Orthopaedic Surgery of the Spine; PCP Physician Assistant; Referring Provider Physician Assistant; Visit Provider Orthopaedic Surgery Orthopaedic Surgery of the Spine
PROC: 0SG30AJ Fusion of Lumbosacral Joint with Interbody Fusion Device, Posterior Approach, Anterior Column, Open Approach (ICD-10-PCS; principal; 2019-08-24 13:45)
DX: M48.062 Spinal stenosis, lumbar region with neurogenic claudication (principal); M43.16 Spondylolisthesis, lumbar region; M47.27 Other spondylosis with radiculopathy, lumbosacral region; I10 Essential (primary) hypertension; Z87.891 Personal history of nicotine dependence
CPT/HCPCS: 36415; 72100; 76000; 85014; 85018; 90471; 90656; 94760; 97116; 97161; 97165; 97530; 97535; C1776; C9290; J0131; J0690; J1100; J1170; J2060; J2405; J2704; J3010; Q2038